=== PATIENT | female | born 1995 | race Caucasian/White ===

== ENCOUNTER 2021-10-24 19:51 | Emergency (ER) | payer BC, OTHER ==
[2021-10-24 20:11] VITALS: BP 121/81; PULSE 95; TEMP 98; BMI 33.2
== END 2021-10-24 21:09 | disposition home or self-care (01) ==
LOC: FER 19:51
DX: S62.657A Nondisplaced fracture of middle phalanx of left little finger, initial encounter for closed fracture (principal)
CPT/HCPCS: 73140-TC-LT-FY; 99284-25